=== PATIENT | male | born 1965 | race Caucasian/White ===

== ENCOUNTER 2016-12-06 15:59 | Emergency (ER) | payer OTHER ==
[~2016-12-06] VITALS: Ht 175.3 cm; Wt 99.8 kg
[2016-12-06] MEDS ORDERED: LABE30TA PO (16:16)
[2016-12-06] MEDS ORDERED: LOVA20TA2 PO (16:16)
[2016-12-06] MEDS ORDERED: ASPI1TAB PO (16:16)
[2016-12-06] MEDS ORDERED: ENAL10TA2 PO (16:16)
[2016-12-06] MEDS ORDERED: HYDR12.55 PO (16:16)
[2016-12-06] MEDS ORDERED: K-TA1TAB PO (16:16)
[2016-12-06] MEDS ORDERED: PRIL20CA9 PO (16:16)
[2016-12-06] MEDS ORDERED: ASPIRIN 81 MG CHEW TABLET PO ONE (16:30)
--- NOTE | 2016-12-06 16:45 | REP ---
Chest one-view HISTORY: Chest pain Comparison: None The lungs are clear. The heart is normal in size. The pulmonary vasculature is normal in appearance. Impression: No acute disease. Signed by Tyron Elena MD 12/06/2016 04:37 P
[2016-12-06 17:26] LABS: ANION GAP 8 MEQ/L (8-16); BLOOD UREA NITROGEN 19 MG/DL (7-18); CALCIUM LEVEL 8.8 MG/DL (8.5-10.1); CARBON DIOXIDE LEVEL 30 MEQ/L (21-32); CHLORIDE LEVEL 101 MEQ/L (98-107); CREATININE FOR GFR 1.09 MG/DL (0.70-1.30); GLOMERULAR FILTRATION RATE > 60.0 (>56); GLUCOSE, FASTING 124 MG/DL (70-105); POTASSIUM SERUM 3.3 MEQ/L (3.5-5.1); SODIUM LEVEL 139 MEQ/L (136-145)
[2016-12-06 17:35] LABS: BASO % 0.2 % (0.0-1.0); EOS # 0.1 K/mm3 (0.0-0.50); EOS % 0.8 % (0.0-3.0); LARGE UNSTAINED CELL # 0.1 K/mm3 (0.0-0.4); LARGE UNSTAINED CELL % 0.9 % (0.0-4.0); LYMPH # 1.1 K/mm3 (1.5-4.5); LYMPH % 9.2 % (24.0-44.0); MEAN CORPUSCULAR HGB CONC 36.3 g/dl (32.0-36.5); MEAN CORPUSCULAR VOLUME 88.3 fl (80.0-96.0); MONO # 0.6 K/mm3 (0.0-0.8); MONO % 5.9 % (0.0-5.0); NEUTROPHILS # 8.8 K/mm3 (1.8-7.7); NEUTROPHILS % 82.9 % (36.0-66.0); PLATELET COUNT, AUTOMATED 160 k/mm3 (150-450); WHITE BLOOD COUNT 10.6 K/mm3 (4.0-10.0)
[2016-12-06] MEDS ORDERED: ISOVUE-370 76% 100ML VIAL (Q9967) As Ordered ONE (19:23)
--- NOTE | 2016-12-06 19:50 | REP ---
Clinical: Chest pain and shortness of breath. Technique: Axial contrast enhanced images from the thoracic inlet to the upper abdomen using 100 ml Isovue 370 intravenous contrast material with multiplanar re-formations. Findings: Satisfactory enhancement of the pulmonary vasculature is achieved and no filling defects are identified to suggest pulmonary embolus. Further evaluation of the mediastinum demonstrates normal thoracic aorta, heart and pericardium. The bilateral lung [place] are well aerated and clear without consolidation pleural effusion or pneumothorax. Minimal posterior basilar dependent changes are appreciated less likely representing trace atelectasis. Tracheobronchial tree is patent. No nodule or mass lesion is identified. No adenopathy noted. Surrounding musculoskeletal structures intact Impression: No evidence for pulmonary embolus. No acute mediastinal or pleural parenchymal process. Signed by Yung Almanza MD 12/06/2016 07:41 P
[2016-12-06] MEDS ORDERED: PERCOCET 5MG/325MG TAB As Ordered ONE (20:26)
[2016-12-06] MEDS ORDERED: PERCOCET 5MG/325MG TAB PO ONE (20:30)
[2016-12-06 20:44] VITALS: BP 135/74
--- NOTE | 2016-12-07 07:25 | ECGEPIP ---
Stationary ECG Study [facility] - ED Test Date: 2016-12-06 Pat Name: RAZ PIPER Department: Room: - Gender: M [employer]: kyung : 1965 Requested By: Noel Gaston Order Number: [id number] Reading MD: Ely Avalos Measurements Intervals [place] Rate: 94 P: -4 [place]: 155 QRS: 22 QRSD: 99 T: 28 QT: 356 QTc: 445 Interpretive Statements SINUS RHYTHM SEPTAL MYOCARDIAL INFARCTION, PROBABLY OLD NSTTW ABNORMALITY LOW [place] NO PRIOR FOR COMPARISON Electronically Signed On 12-07-2016 7:24:59 EDT by Ely Avalos
== END 2016-12-06 20:45 | disposition home or self-care (01) ==
LOC: M ED 16:56
DX: R07.9 Chest pain, unspecified (principal)
CPT/HCPCS: 36415; 71010; 71275; 80048; 82550; 82553; 83880; 85025; 93005; 93041; 94760; 99285; Q9967

== ENCOUNTER → 2017-04-13 | Outpatient (CLI) | payer OTHER ==
[~2017-04-13] MED LIST: ASPI1TAB PO; ENAL10TA2 PO; HYDR12.55 PO; K-TA1TAB PO; LABE30TA PO; LOVA20TA2 PO; PRIL20CA9 PO
--- NOTE | 2017-04-13 10:56 | REP ---
Left foot four views: There are no comparisons. Mineralization and joint spaces are unremarkable. There is no acute fracture or dislocation. There are calcaneal plantar and Achilles spurs. The study is otherwise unremarkable. Signed by Deandre Bains MD 04/13/2017 10:47 A
== END ==
LOC: M RAD 09:15
PROVIDERS: ATTEND Surgery
DX: M79.672 Pain in left foot (principal)